=== PATIENT | male | born 1975 | race African-American/Black ===

== ENCOUNTER 2017-09-12 07:03 | Observation (INO) | payer OTHER ==
[2017-09-10 10:31] LABS: BASOPHILS % 0.6 % (0.0-1.0); EOSINOPHILS # (AUTO) 0.1 (0.0-0.4); EOSINOPHILS % 2.2 % (0.0-6.0); HEMATOCRIT 46.8 % (38.2-49.6); HEMOGLOBIN 15.3 g/dL (14.0-18.0); LYMPHOCYTES # (AUTO) 2.4 (1.0-3.2); LYMPHOCYTES % 38.6 % (18.0-39.1); MEAN CORPUSCULAR HGB CONC 32.7 g/dL (31-35); MEAN CORPUSCULAR VOLUME 88.6 fL (81-99); MONOCYTES # (AUTO) 0.7 (0.2-0.8); MONOCYTES % 11.7 % (4.4-11.3); NEUTROPHILS # (AUTO) 2.9 (2.1-6.9); NEUTROPHILS % 46.6 % (38.7-80.0); PLATELET COUNT 251 x10e3/uL (140-360); RED BLOOD COUNT 5.28 x10e6/uL (4.3-5.7); RED CELL DISTRIBUTION WIDTH 13.2 % (11.7-14.4)
[2017-09-10 10:44] LABS: INR 0.84; PARTIAL THROMBOPLASTIN TIME 25.8 seconds (23.8-35.5); PROTHROMBIN TIME 11.9 seconds (11.9-14.5)
[2017-09-10 10:52] LABS: ANION GAP 15.4 mmol/L (8-16); BLOOD UREA NITROGEN 12 mg/dL (7-26); BUN/CREATININE RATIO 9 (6-25); CALCIUM 9.2 mg/dL (8.4-10.2); CARBON DIOXIDE 26 mmol/L (22-29); CHLORIDE 105 mmol/L (98-107); CREATININE, SERUM 1.32 mg/dL (0.72-1.25); EST GLOMERULAR FILTRATION RATE > 60 ML/MIN (60-); GLUCOSE 113 mg/dL (74-118); POTASSIUM 4.4 mmol/L (3.5-5.1); SODIUM 142 mmol/L (136-145)
--- NOTE | 2017-09-10 11:15 | Diagnostic Imaging Report ---
PROCEDURE: Frontal and lateral views of the chest. COMPARISON: None. INDICATIONS: PRE OPERATIVE CHEST X-RAY FOR BACK SURGERY FINDINGS: Lines/tubes: None. Lungs: The lungs are well inflated and clear. There is no evidence of pneumonia or pulmonary edema. Pleura: There is no pleural effusion or pneumothorax. Heart and mediastinum: The heart and the mediastinum are normal. Bones: No acute bony abnormality. IMPRESSION: No acute radiographic abnormality. Dictated by: Dominic Quevedo M.D. on 09/10/2017 at 11:25 Electronically approved by: Dominic Quevedo M.D. on 09/10/2017 at 11:25
[2017-09-12] VITALS (7 sets, daily range): BP systolic 115–124; BP diastolic 59–75
[~2017-09-12] VITALS: Ht 182.9 cm; Wt 105.7 kg
[~2017-09-12 07:03] MED LIST: BACITRACIN 50,000 UNIT VIAL ONE; CYCLOBENZAPRINE10 MG PO; EPI-PEN SQ; GELATIN SPONGE SZ 100 ONE; IBUPROFEN400 MG PO; LIDOCAINE 1% W/EPINEPHRINE 20 ML VIAL ONE; LIDOCAINE PATCH TOP; MAXALT MLT10 MG SL; THROMBIN FOR SOLN 5,000 UNIT VIAL ONE
--- OUTSIDE RECORDS SUMMARY | 2017-09-12 07:05 | XMS REPORT ---
Author Author Admin, [place] Organization [facility] Address [address] [place] [address] Phone Allergies, Adverse Reactions, Alerts Allergy Name Reaction Description Start Date Severity Status Provider LAVENDAR Critical Active Kim Frostey DO Conditions or Problems Problem Name Problem Code Onset Date Status Entry Date Provider Comment Standard Description Annotate Mole 216.9 Active Kim Gagandeep DO Benign neoplasm of skin, site unspecified Elevated ALT 790.4 Active Kim Gagandeep DO Nonspecific elevation of levels of transaminase or lactic acid dehydrogenase [ LDH] Prediabetes 790.29 Active Kim Gagandeep DO Other abnormal glucose Chronic back pain 724.5 Active Kim Gagandeep DO Backache, unspecified Flat feet 734 Active Kim Gagandeep DO Flat foot Headache, migraine 346.90 Active Kim Gagandeep DO Migraine, unspecified, without mention of intractable migraine, without mention of status migrainosus Hyperlipidemia 272.4 Active Kim Gagandeep DO Other and unspecified hyperlipidemia Obesity Active Kim Gagandeep DO Obesity, unspecified Obstructive sleep apnea, adult 327.23 Active Kim Gagandeep DO Obstructive sleep apnea (adult) (pediatric) Plantar fasciitis 728.71 Active Kim Gagandeep DO Plantar fascial fibromatosis Radiculopathy 729.2 Active Kim Gagandeep DO Neuralgia, neuritis, and radiculitis, unspecified MRI 10/17: moderately severe compromise of the spinal canal at L4-L5 secondary to a broad-based disc herniation which compresses the thecal sac and doesn't affect the neural foramina and moderate hypertrophy of the ligamenta flava. There is a posterior annular tear. Tobacco user 305.1 Active Kim Donis DO Tobacco use disorder Screening for anemia ICD-V78.1 Inactive Kim Donis DO Screening for diabetes mellitus ICD-V77.1 Inactive Kim Donis DO Screening for lipid disorder ICD-V77.91 Inactive Kim Donis DO Screening for metabolic disorder ICD-V77.99 Inactive Kim Donis DO Screening for std ICD-V74.5 Inactive Kim Donis DO Screening for anemia V78.1 Resolved Kim Gagandeep DO Screening for other and unspecified deficiency anemia Screening for diabetes mellitus V77.1 Resolved Kim Gagandeep DO Screening for diabetes mellitus Screening for lipid disorder V77.91 Resolved Kim Donis DO Screening for lipoid disorders Screening for metabolic disorder V77.99 Resolved Kim Donis DO Screening for other and unspecified endocrine, nutritional , metabolic, and immunity disorders Screening for std V74.5 Resolved Kim Donis DO Screening examination for venereal disease Medication List Medication Instructions Start Date Stop Date Generic Name ND Status Provider Patient Instruction LIDOCAINE 5 % EXTERNAL PATCH one patch transdermally Twice a Day as needed for pain LIDOCAINE 34391502260 Active Kim Donis DO Active CYCLOBENZAPRINE HCL 10 MG ORAL TABLET 1 By Mouth three times a day as needed for muscle spasm CYCLOBENZAPRINE HCL 99372929980 Active Kim Donis DO Active EPIPEN 2-BAYLEE 0.3 MG/0.3ML INJECTION SOLUTION AUTO-INJECTOR use as needed for severe allergic reaction EPINEPHRINE 12586779286 Active Kim Frostey Active IBUPROFEN 800 MG ORAL TABLET 1 by mouth every 8 hours as needed IBUPROFEN 02241704156 Active Kim Frostey Active MAXALT-APPLICATION SUPPORT INTERN 10 MG ORAL TABLET DISINTEGRATING place 1 tablet SL x 1, may repeat once in 2 hours RIZATRIPTAN BENZOATE 08666570666 Active Kim Gagandeep Active Advance Directives Directive Description Start Date DISCUSSED - NO DECISION MADE Immunizations Vaccine Administration Date Value Standard Description influenza immunization (Flu Vax) has been administered given influenza virus vaccine, unspecified formulation Vital Signs Date Name Value Unit Range Description blood pressure, diastolic 82 mm[Hg] BP dior blood pressure, systolic 144 mm[Hg] BP sys height E&M 72 [in_us] Bdy height pulse rate E&M 94 /min Heart rate temperature E&M 99.0 [degF] Body temperature weight E&M 270 [lb_av] Weight Measured blood pressure, diastolic 89 mm[Hg] BP dior blood pressure, systolic 130 mm[Hg] BP sys height E&M 72 [in_us] Bdy height pulse rate E&M 87 /min Heart rate temperature E&M 98.3 [degF] Body temperature weight E&M 268.25 [lb_av] Weight Measured blood pressure, diastolic 95 mm[Hg] BP dior blood pressure, systolic 147 mm[Hg] BP sys height E&M 72 [in_us] Bdy height pulse rate E&M 112 /min Heart rate temperature E&M 98.7 [degF] Body temperature weight E&M 278 [lb_av] Weight Measured blood pressure, diastolic 88 mm[Hg] BP dior blood pressure, systolic 128 mm[Hg] BP sys height E&M 72 [in_us] Bdy height pulse rate E&M 97 /min Heart rate temperature E&M 98.3 [degF] Body temperature weight E&M 278.80 [lb_av] Weight Measured Diagnostic Results Date Name Value Unit Range Description Lab Report: CBC With Differential/Platelet, Comp. Metabolic Panel (14), ... - Serology hepatitis C antibody, serum <0.1 0.0-0.9 Lab Report: CBC With Differential/Platelet, Comp. Metabolic Panel (14), ... - Hematology lymphocyte count, blood, automated 2.8 X10E3/UL 10*3/mm3 0.7- 3.1 Lab Report: Comp. Metabolic Panel (14), Lipid Panel, Hemoglobin A1c, Car ... - Chemistry urea nitrogen, blood 12 mg/dL 6-24 creatinine, serum 1.17 mg/dL 0.76-1.27 chloride, serum 100 mmol/L 96-106 Lab Report: CBC With Differential/Platelet, Comp. Metabolic Panel (14), ... - Hematology mean corpuscular volume, RBC 86 fL 79-97 Lab Report: Comp. Metabolic Panel (14), Lipid Panel, Hemoglobin A1c, Car ... - Chemistry triglyceride, serum, fasting 235 mg/dL 0-149 Lab Report: CBC With Differential/Platelet, Comp. Metabolic Panel (14), ... - Hematology erythrocyte (RBC) count 5.20 X10E6/UL 10*6/mm3 4.14-5.80 Lab Report: Comp. Metabolic Panel (14), Lipid Panel, Hemoglobin A1c, Car ... - Chemistry Estimated Glomerular Filtration Rate (calc) 77 mL/min/1.73m2 > 59 Lab Report: CBC With Differential/Platelet, Comp. Metabolic Panel (14), ... - Hematology platelet count 224 X10E3/UL 10*3/mm3 534-385 7790/07/31 red blood cell distribution width 14.0 % 12.3-15.4 Lab Report: Comp. Metabolic Panel (14), Lipid Panel, Hemoglobin A1c, Car ... - Chemistry protein, total, serum 7.5 g/dL 6.0-8.5 HDL cholesterol, serum 51 mg/dL >39 albumin/globulin ratio, serum 1.9 1.2-2.2 Lab Report: CBC With Differential/Platelet, Comp. Metabolic Panel (14), ... - Hematology eosinophils as percent of blood leukocytes 2 % Lab Report: CBC With Differential/Platelet, Comp. Metabolic Panel (14), ... - Chemistry Absolute Neutrophils 4.4 X10E3/UL 10*3/uL 1.4-7.0 Lab Report: CBC With Differential/Platelet, Comp. Metabolic Panel (14), ... - Hematology basophil count, absolute 0.0 x10E3/uL 0.0-0.2 Lab Report: CBC With Differential/Platelet, Comp. Metabolic Panel (14), ... - Chemistry hepatitis B surface antigen Negative Negative Lab Report: Comp. Metabolic Panel (14), Lipid Panel, Hemoglobin A1c, Car ... - Chemistry alanine aminotransferase (SGPT), serum 50 U/L 0-44 LDL cholesterol, serum 138 mg/dL 0-99 Lab Report: CBC With Differential/Platelet, Comp. Metabolic Panel (14), ... - Hematology monocytes as percent of blood leukocytes 9 % Lab Report: Comp. Metabolic Panel (14), Lipid Panel, Hemoglobin A1c, Car ... - Chemistry cholesterol, serum 236 mg/dL 100-199 Lab Report: CBC With Differential/Platelet, Comp. Metabolic Panel (14), ... - Hematology mean corpuscular hemoglobin concentration, RBC 34.3 G/DL % 31.5- 35.7 hemoglobin, blood 15.3 g/dL 12.6-17.7 leukocyte count, blood 8.1 X10E3/UL 10*3/mm3 3.4-10.8 hematocrit, blood 44.6 % 37.5-51.0 Lab Report: Comp. Metabolic Panel (14), Lipid Panel, Hemoglobin A1c, Car ... - Chemistry globulin, serum 2.6 1.5-4.5 Lab Report: CBC With Differential/Platelet, Comp. Metabolic Panel (14), ... - Chemistry thyroid stimulating hormone, serum 0.693 u[iU]/mL 0.450-4.500 Lab Report: Comp. Metabolic Panel (14), Lipid Panel, Hemoglobin A1c, Car ... - Chemistry albumin, serum 4.9 g/dL 3.5-5.5 very low density lipoproteins 47 mg/dL 5-40 calcium, serum 9.8 mg/dL 8.7-10.2 Lab Report: CBC With Differential/Platelet, Comp. Metabolic Panel (14), ... - Hematology basophils as percent of blood leukocytes 0 % monocyte count, blood, automated 0.7 X10E3/UL 10*3/uL 0.1-0.9 Lab Report: Comp. Metabolic Panel (14), Lipid Panel, Hemoglobin A1c, Car ... - Chemistry urea nitrogen/creatinine ratio, serum 10 9-20 Lab Report: CBC With Differential/Platelet, Comp. Metabolic Panel (14), ... - Chemistry immature granulocytes, percentage of total cells, blood 0 % Lab Report: Comp. Metabolic Panel (14), Lipid Panel, Hemoglobin A1c, Car ... - Genetics/fertility eGFR if 89 mL/min/1.73m2 >59 Lab Report: CBC With Differential/Platelet, Comp. Metabolic Panel (14), ... - Hematology lymphocytes as percent of blood leukocytes 35 % Lab Report: Comp. Metabolic Panel (14), Lipid Panel, Hemoglobin A1c, Car ... - Chemistry carbon dioxide, venous blood 26 mmol/L 18-29 Lab Report: CBC With Differential/Platelet, Comp. Metabolic Panel (14), ... - Serology rapid plasma reagin antibody, serum Non Reactive Non Reactive Lab Report: Chlamydia/GC Amplification - Lab chlamydia DNA probe Negative Negative Lab Report: Comp. Metabolic Panel (14), Lipid Panel, Hemoglobin A1c, Car ... - Chemistry sodium, serum 143 mmol/L 134-144 Lab Report: Chlamydia/GC Amplification - Microbiology Neisseria gonorrhoeae DNA probe Negative Negative Lab Report: Comp. Metabolic Panel (14), Lipid Panel, Hemoglobin A1c, Car ... - Chemistry hemoglobin A1C, blood, as % of total hemoglobin 5.9 % 4.8-5.6 alkaline phosphatase, serum 61 U/L 39-117 Lab Report: CBC With Differential/Platelet, Comp. Metabolic Panel (14), ... - Hematology Eosinophil Absolute Count 0.1 X10E3/UL 10*3/uL 0.0-0.4 mean corpuscular hemoglobin, RBC 29.4 pg 26.6-33.0 Lab Report: Comp. Metabolic Panel (14), Lipid Panel, Hemoglobin A1c, Car ... - Chemistry bilirubin, serum, total 0.3 mg/dL 0.0-1.2 Lab Report: CBC With Differential/Platelet, Comp. Metabolic Panel (14), ... - Hematology neutrophils as percent of blood leukocytes 54 % Lab Report: Comp. Metabolic Panel (14), Lipid Panel, Hemoglobin A1c, Car ... - Chemistry blood glucose, random 88 mg/dL 65-99 potassium, serum 4.8 mmol/L 3.5-5.2 Lab Report: CBC With Differential/Platelet, Comp. Metabolic Panel (14), ... - Serology hepatitis B surface antibody Non Reactive Lab Report: Comp. Metabolic Panel (14), Lipid Panel, Hemoglobin A1c, Car ... 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
--- OUTSIDE RECORDS SUMMARY | 2017-09-12 07:05 | XMS REPORT ---
Author Author [facility] Address Unknown Phone Unavailable Care Team Providers Care Manager Internet Name Role Phone FREDO MCKEON Unavailable Unavailable Problems This patient has no known problems. Allergies, Adverse Reactions, Alerts This patient has no known allergies or adverse reactions. Medications This patient has no known medications. Results Test Description Test Time Test Comments Text Results Atomic Results Result Comments CHEST 2 VIEWS [place] [address] Patient Name: JS MORA MR # : [id number] : 1975 Age/Sex: 41/M Req #: [id number] Adm Physician: Ordered by: FREDO MCKEON MD Report #: [id number] Location: OR Room/Bed: Procedure: [id number] DX/CHEST 2 VIEWS Exam Date: Exam Time: REPORT STATUS: Signed PROCEDURE: Frontal and lateral views of the chest. COMPARISON: None. INDICATIONS: PRE OPERATIVE CHEST X-RAY FOR BACK SURGERY FINDINGS: Lines/tubes: None. Lungs: The lungs are well inflated and clear. There is no evidence of pneumonia or pulmonary edema. Pleura: There is no pleural effusion or pneumothorax. Heart and mediastinum: The heart and the mediastinum are normal. Bones: No acute bony abnormality. IMPRESSION: No acute radiographic abnormality. Dictated by: Mariela Quevedo M.D. on 09/10/2017 at 11:25 Electronically approved by: Mariela Quevedo M.D. on 09/10/2017 at 11:25 Dictated By: MARIELA QUEVEDO MD 1125 COPY TO: FREDO MCKEON MD
[2017-09-12] MEDS ORDERED: LIDOCAINE HCL (LTA) 4 ML SOLN ONE (07:12)
[2017-09-12] MEDS ORDERED: ACETAMINOPHEN 1000 MG/100 ML 100 ML IV ONE (07:12)
[2017-09-12] MEDS ORDERED: CEFAZOLIN SOD 2 GM/D5W 50ML 50 ML IV ONE (08:16)
[2017-09-12] MEDS ORDERED: PROMETHAZINE HCL (IM) 25 MG/ML VIAL IM PRN (10:30)
[2017-09-12] MEDS ORDERED: MAGNESIUM/ALUMINUM/SIMETHICONE 30 ML UDC PO PRN (10:30)
[2017-09-12] MEDS ORDERED: EPI SQ PRN (10:30)
[2017-09-12] MEDS ORDERED: ACETAMINOPHEN 325 MG TAB PO PRN (10:30)
[2017-09-12] MEDS ORDERED: MORPHINE SULFATE 5 MG/ML VIAL IM PRN (10:30)
[2017-09-12] MEDS ORDERED: OXYCODONE/ACETAMINOPHEN 5-325 1 EACH TABLET PO PRN (10:30)
[2017-09-12] MEDS ORDERED: RIZATRIPTAN BENZOATE 10 MG SL PRN (10:30)
[2017-09-12] MEDS ORDERED: CARISOPRODOL 350 MG TAB PO PRN (10:30)
[2017-09-12] MEDS ORDERED: LIDOCAINE TOP PRN (10:30)
--- NOTE | 2017-09-12 11:08 | Operative Report ---
DATE OF PROCEDURE: September 12, 2017 PREOPERATIVE DIAGNOSIS: L4-L5 disk herniation with radiculopathy, M50.16. POSTOPERATIVE DIAGNOSIS: L4-L5 disk herniation with radiculopathy, M50.16. PROCEDURES: Left L4-5 laminotomy, medial facetectomy, and microsurgical diskectomy, 92970. ANESTHESIA: General. INDICATIONS: Patient is a 41-year-old man who presents with a central and left paracentral L4-L5 disk herniation. He was taken to the operating room for microsurgical diskectomy. PROCEDURE: After induction of general anesthesia, the patient was placed on the operating table in prone position over a Juve frame. The lumbar region was prepped and draped in sterile fashion. A preoperative x-ray was obtained. A small midline incision was created. Lumbar fascia was opened to the left of midline, and subperiosteal dissection was carried out to expose the left-sided L4 and L5 laminae and the medial aspect of the facet joint. A 2nd x-ray confirmed correct localization. The operating microscope was brought in. A high-speed drill equipped with giacomo bur was used to drill the inferior aspect of the lamina of L4, the superior rim of the lamina of L5, and the medial rim of the L4-L5 facet joint on the left side. The ligamentum flavum was resected, and the dural sac and the L5 nerve root were exposed. Nerve root was slightly retracted medially. The subligamentous disk herniation came into view. The posterior longitudinal ligament and posterior annulus of the disk were incised with a #11 blade. The subligamentous disk herniation was retrieved and removed with a ball probe and pituitary rongeur. The loose contents of the L4-L5 disk were evacuated with angled curets and pituitary rongeurs. Meticulous hemostasis was secured. The wound was closed in multiple layers with #0 and 2-0 Vicryl sutures. The skin was closed with 3-0 Monocryl sutures in subcuticular fashion. Steri-Strips and dressing were applied. The patient was awakened, extubated and taken to the postanesthesia care unit in stable condition. No intraoperative complications were encountered. Estimated blood loss 10 mL. Job#: [id number]
[2017-09-12] MEDS ORDERED: EPINEPHRINE 0.3 MG/0.3 ML PEN.INJCTR SC PRN (11:15)
[2017-09-12] MEDS ORDERED: LIDOCAINE 5% PATCH TP PRN (11:15)
--- OUTSIDE RECORDS SUMMARY | 2017-09-12 11:21 | XMS REPORT ---
Author Author Admin, [place] Organization [facility] Address [address] [place] [id number] Phone Allergies, Adverse Reactions, Alerts Allergy Name [...] a Day as needed for pain LIDOCAINE 30467213952 Active Kim Donis DO Active CYCLOBENZAPRINE HCL 10 MG ORAL TABLET 1 By Mouth three times a day as needed for muscle spasm CYCLOBENZAPRINE HCL 00201591647 Active Kim Donis DO Active EPIPEN 2-BAYLEE 0.3 MG/0.3ML INJECTION SOLUTION AUTO-INJECTOR use as needed for severe allergic reaction EPINEPHRINE 56679784728 Active Kim Frostey Active IBUPROFEN 800 MG ORAL TABLET 1 by mouth every 8 hours as needed IBUPROFEN 73185879463 Active Kim Frostey Active MAXALT-SURFACE PLATE INSPECTOR 10 MG ORAL TABLET DISINTEGRATING place 1 tablet SL x 1, may repeat once in 2 hours RIZATRIPTAN BENZOATE 85667217591 Active Kim Gagandeep Active Advance Directives Directive [...] - Hematology platelet count 224 X10E3/UL 10*3/mm3 861-432 5413/07/31 red blood cell distribution width 14.0 % [...] Encounters Date Encounter Provider Code 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
[2017-09-12] MEDS: LACTATED RINGER'S 1,000 ML IV SCH ×2 (12:00→20:55)
[2017-09-12] MEDS: HYDROMORPHONE 2MG/ML INJ IV PRN ×2 (12:15→17:40)
[2017-09-12] MEDS: ONDANSETRON HCL INJ 2 MG/ML VIAL IV PRN (12:15)
[2017-09-12] MEDS ORDERED: CEFAZOLIN SOD 1 GM/NS 50ML 50 ML IV SCH (14:00)
[2017-09-12] MEDS: CEFAZOLIN SOD 1 GM VIAL IV SCH (16:00)
[2017-09-12] MEDS ORDERED: ROCURONIUM BROMIDE 10 MG/ML 5ML VIAL ONE (18:23)
[2017-09-12] MEDS ORDERED: DEXAMETHASONE SOD PHOS INJ 4 MG/ML VIAL ONE (18:23)
[2017-09-12] MEDS ORDERED: GLYCOPYRROLATE INJ 1MG/ 5 ML SYR ONE (18:23)
[2017-09-12] MEDS ORDERED: ONDANSETRON HCL INJ 2 MG/ML VIAL ONE (18:23)
[2017-09-12] MEDS ORDERED: SEVOFLURANE INHAL SOLN 250 ML PEN BTL ONE (18:23)
[2017-09-12] MEDS ORDERED: NEOSTIGMINE 5 MG/5ML SYR ONE (18:23)
[2017-09-12] MEDS ORDERED: PROPOFOL IV EMULSION 10 MG/ML 20 ML VIAL ONE (18:23)
[2017-09-12] MEDS ORDERED: LIDOCAINE HCL 2% LOCAL INJ 5 ML SDV VIAL INJ ONE (18:23)
[2017-09-12] MEDS ORDERED: MIDAZOLAM HCL 2 MG/2 ML VIAL ONE (18:29)
[2017-09-12] MEDS ORDERED: FENTANYL CITRATE/PF 100MCG/2 ML INJ ONE (18:29)
[2017-09-12] MEDS ORDERED: ZOLPIDEM TARTRATE 5 MG TAB PO PRN (21:00)
[2017-09-13] VITALS: BP 115/65
[2017-09-13] MEDS: CEFAZOLIN SOD 1 GM VIAL IV SCH ×2 (01:23→08:50)
[2017-09-13] MEDS: HYDROMORPHONE 2MG/ML INJ IV PRN (01:46)
[2017-09-13] MEDS: ONDANSETRON HCL INJ 2 MG/ML VIAL IV PRN (01:46)
[2017-09-13 04:00] VITALS: BP 115/69
[2017-09-13] MEDS: LACTATED RINGER'S 1,000 ML IV SCH (05:06)
[2017-09-13 08:17] VITALS: BP 118/63
== END 2017-09-13 09:24 | disposition home or self-care (01) ==
LOC: OR 07:03 → IMCU 11:19
PROVIDERS: ADMIT Neurological Surgery; ATTEND Neurological Surgery
DX: M51.16 Intervertebral disc disorders with radiculopathy, lumbar region (principal); E78.5 Hyperlipidemia, unspecified; I10 Essential (primary) hypertension; G47.30 Sleep apnea, unspecified; G57.60 Lesion of plantar nerve, unspecified lower limb
CPT/HCPCS: 36415; 63047; 69990; 71046; 72020; 80048; 85025; 85610; 85730; 86850; 86900; 88304; 93005; G0378 ×2; J0690 ×2; J1100; J1170 ×2; J2001; J2250; J2405 ×2; J7120 ×2